=== PATIENT | male | born 1940 | race Caucasian/White ===

== ENCOUNTER → 2017-04-25 | Outpatient (CLI) | payer MEDICARE, OTHER ==
[~2017-04-25] MED LIST: AMIT25TA PO; AMLO5TAB2 PO; ASPI-496 PO; CHOL100012 PO; CIPR500T3 PO; LISI-167 PO; OMEG-76 PO; SIMV40TA3 PO; TAMS0.4C2 PO; VITA1CAP PO
[2017-04-25 10:03] LABS: HEMATOCRIT 40.6 % (39.2-51.8); HEMOGLOBIN 13.9 g/dL (13.7-18.0); WHITE BLOOD COUNT 5.4 x10^3/uL (3.4-10)
[2017-04-25 10:18] LABS: BLOOD UREA NITROGEN 17 mg/dL (7-18)
[2017-04-25 10:21] LABS: ASPARTATE AMINO TRANSFERASE 18 U/L (15-37)
== END | disposition home or self-care (01) ==
LOC: STAR 08:31
PROVIDERS: ATTEND Urology
DX: Z01.818 Encounter for other preprocedural examination (principal); R94.31 Abnormal electrocardiogram [ECG] [EKG]; R33.9 Retention of urine, unspecified; R79.1 Abnormal coagulation profile
CPT/HCPCS: 36415; 80053; 81003; 85025; 85610; 85730; 87086; 93005

== ENCOUNTER 2017-05-02 11:50 | Observation (INO) | payer MEDICARE, OTHER ==
[~2017-05-02] VITALS: Ht 189.2 cm; Wt 88.6 kg
[2017-05-02] MEDS ORDERED: LACTATED RINGERS 1,000 ML IV SCH (12:19)
[2017-05-02] MEDS ORDERED: LIDOCAINE 1%, 2ML SQ PRN (12:30)
[2017-05-02] MEDS ORDERED: GLYCOPYRROLATE 0.2MG/1ML, 5ML ONE (14:08)
[2017-05-02] MEDS ORDERED: ROCURONIUM 10 MG/ML ONE (14:08)
[2017-05-02] MEDS ORDERED: ONDANSETRON 2MG/ML, 2ML ONE (14:08)
[2017-05-02] MEDS ORDERED: PROPOFOL 10 MG/ML, 20ML ONE (14:08)
[2017-05-02] MEDS ORDERED: CEFAZOLIN 1,000 MG ONE (14:08)
[2017-05-02] MEDS ORDERED: NEOSTIGMINE 1 MG/ML, 10ML ONE (14:08)
[2017-05-02] MEDS ORDERED: SUCCINYLCHOLINE 20 MG/ML, 10ML ONE (14:08)
[2017-05-02] MEDS ORDERED: LABETALOL 5MG/ML, 20ML IV PRN (15:00)
[2017-05-02] MEDS ORDERED: FENTANYL PF 100 MCG/2ML IV PRN (15:00)
[2017-05-02] MEDS ORDERED: METOCLOPRAMIDE 5 MG/ML, 2ML IV PRN (15:00)
[2017-05-02] MEDS ORDERED: ONDANSETRON 2MG/ML, 2ML IVPush PRN (15:00)
[2017-05-02] MEDS ORDERED: ACETAMINOPHEN 325 MG TABLET PO PRN (15:00)
[2017-05-02] MEDS ORDERED: hydrALAzine 20 MG/ML, 1ML IV PRN (15:00)
[2017-05-02] MEDS ORDERED: OXYcodone 5 MG/5 ML ORAL.SOL UDC PO PRN (15:00)
[2017-05-02] MEDS ORDERED: HYDROmorphone 1 MG/ML, 1ML IV PRN (15:00)
[2017-05-02] MEDS ORDERED: LISINOPRIL 20 MG TABLET PO PRN (15:30)
[2017-05-02] MEDS ORDERED: TEMAZEPAM 15 MG CAPSULE PO PRN (15:30)
[2017-05-02] MEDS ORDERED: AMLODIPINE 5 MG TABLET PO PRN (15:30)
[2017-05-02] MEDS ORDERED: ONDANSETRON 2MG/ML, 2ML IV PRN (15:30)
[2017-05-02] MEDS ORDERED: HYDROcodone/APAP 5/325 TABLET PO PRN (15:30)
[2017-05-02] MEDS ORDERED: OPIUM/BELLADONNA SUPP.RECT 16.2-30 MG PR PRN (15:30)
[2017-05-02] MEDS ORDERED: OXYcodone 5 MG/5 ML ORAL.SOL UDC ONE (15:49)
[2017-05-02] MEDS ORDERED: FENTANYL PF 100 MCG/2ML ONE (15:49)
[2017-05-02] MEDS ORDERED: ACETAMINOPHEN 650 MG/20.3 ML UDC ONE (15:49)
[2017-05-02 16:44] VITALS: BP 133/79
[2017-05-02 18:09] LABS: BLOOD UREA NITROGEN 17 mg/dL (7-18)
[2017-05-02] MEDS ORDERED: AMITRIPTYLINE 25 MG TABLET PO SCH (21:00)
[2017-05-02] MEDS ORDERED: SIMVASTATIN 40 MG TABLET PO SCH (21:00)
[2017-05-02 21:13] VITALS: BP 127/75
[2017-05-02] MEDS: CEFAZOLIN PMX 1GM/50ML 50 ML IVPB SCH (23:23)
[2017-05-02] MEDS: D5%-LACTATED RINGERS 1,000 ML IV SCH (23:25)
[2017-05-03 00:37] VITALS: BP 127/70
[2017-05-03 04:06] VITALS: BP 120/69
[2017-05-03] MEDS ORDERED: AMLODIPINE 5 MG TABLET PO PRN (05:30)
[2017-05-03] MEDS ORDERED: LISINOPRIL 20 MG TABLET PO PRN (05:30)
[2017-05-03] MEDS: CEFAZOLIN PMX 1GM/50ML 50 ML IVPB SCH (06:13)
[2017-05-03] MEDS ORDERED: MULTIVITS,STRESS FORMULA 1 TABLET PO SCH (09:00)
[2017-05-03] MEDS ORDERED: TAMSULOSIN 0.4 MG CAP.ER.24H PO SCH (09:00)
[2017-05-03 09:04] VITALS: BP 135/77
[2017-05-03] MEDS: D5%-LACTATED RINGERS 1,000 ML IV SCH (11:06)
[2017-05-03 13:54] VITALS: BP 153/85
== END 2017-05-03 14:45 | disposition home or self-care (01) ==
LOC: OUT 11:50 → ORIP 15:28 → 4NOR 16:38
PROVIDERS: ADMIT Urology; ATTEND Urology
DX: N40.1 Benign prostatic hyperplasia with lower urinary tract symptoms (principal); R33.9 Retention of urine, unspecified; Z87.891 Personal history of nicotine dependence
CPT/HCPCS: 36415; 52630; 80048; 82040; 85018; 88305; 96365; 96375; G0378; J0330; J0690; J2250; J2405; J2704; J2710; J3010; J3490; J7120; J7121